=== PATIENT | female | born 1985 | race Caucasian/White ===

== ENCOUNTER 2016-12-13 11:40 | Emergency (ER) | payer BC ==
[2016-12-13 11:49] VITALS: BP 116/78; PULSE 80; TEMP 97.6; BMI 41.1
--- NOTE | 2016-12-13 11:50 | PDOC ---
History of Present Illness - General Chief Complaint: Injury Stated Complaint: LEFT HAND INJURY Time Seen by Provider: 12/13/16 11:45 History Source: Patient Exam Limitations: No Limitations - History of Present Illness Initial Comments: 12/13/16 11:46 hit dorsum of left hand on door handle yesterday. C/O Pain and swelling today. Isolated injury, no other complaints. Timing/Duration: 24 hours Severity: mild Modifying Factors: improves with: other (none) Associated Symptoms: denies: denies symptoms Past History - Past Medical History Allergies/Adverse Reactions: Allergies Allergy/AdvReac Type Severity Reaction Status Date / Time cephalexin monohydrate Allergy Mild Rash Verified 12/13/16 11:42 [From Keflex] Home Medications: Ambulatory Orders Albuterol Sulfate Inhaler - [Ventolin Hfa Inhaler -] 1 - 2 inh PO QID PRN Sertraline HCl [Zoloft] 100 mg PO HS 12/13/16 Asthma: Yes - Surgical History Appendectomy: Yes - Psycho/Social/Smoking Cessation Hx Anxiety: No Suicidal Ideation: No Smoking Status: No Smoking History: Never smoked Number of Cigarettes Smoked Daily: 0 Hx Alcohol Use: No Drug/Substance Use Hx: No Substance Use Type: None Review of Systems - Review of Systems Able to Perform ROS?: Yes Is the patient limited [place] proficient: No Constitutional: No: Symptoms Reported HEENTM: No: Symptoms Reported Respiratory: No: Symptoms reported Cardiac (ROS): No: Symptoms Reported ABD/GI: No: Symptoms Reported : No: Symptoms Reported Musculoskeletal: Yes: See HPI Integumentary: No: Symptoms Reported Neurological: No: Symptoms reported Endocrine: No: Symptoms Reported Hematologic/Lymphatic: No: Symptoms Reported All Other Systems: Reviewed and Negative *Physical Exam - Physical Exam Comments: 12/13/16 11:49swelling and discoloration to dorsum of right hand. Skin intact. No bony tenderness or crepetance. No abnormal motion or deformity. Hand NV intact distally Medical Decision Making - Medical Decision Making 12/13/16 12:38 XRAY no fracture or dislocation *DC/Admit/Observation/Transfer Diagnosis at time of Disposition: Contusion Qualifiers: Encounter type: initial encounter Contusion area: hand - Discharge Dispostion Condition at time of disposition: Good - Patient Instructions Printed Discharge Instructions: DI for Contusion Additional Instructions: Charis- X-Ray is normal. No Fracture. Ice, Elevation, Advil and recheck with your PCP in about a week. Return to us if any problems. Wear the vishnu wrap for comfort. Juan- Dr. Mumtaz Santamaria
== END 2016-12-13 12:47 | disposition home or self-care (01) ==
LOC: FER 11:40
DX: S60.222A Contusion of left hand, initial encounter (principal); W22.01XA Walked into wall, initial encounter; Y93.9 Activity, unspecified; Y92.9 Unspecified place or not applicable; J45.909 Unspecified asthma, uncomplicated
CPT/HCPCS: 73130-TC-LT; 99282-25